=== PATIENT | male | born 1955 | race Caucasian/White ===

== ENCOUNTER 2022-03-13 22:14 | Emergency (ER) | payer BC ==
[2022-03-13] MEDS ORDERED: Ondansetron PF 4 MG/2 ML Vial ONE (23:35)
[2022-03-13 23:40] LABS: Hemoglobin 15.4 g/dL (14.0-18.0); Mean Corpuscular HGB CONC 36.3 g/dL (32.0-36.0); Mean Corpuscular Hemoglobin 33.2 pg (27.0-31.0); Mean Corpuscular Volume 91.4 fL (78.0-98.0); Mean Platelet Volume 7.6 fL (7.4-10.4); Platelet Count 98 thou/uL (130-400); RBC Distribution Width 12.1 % (11.5-14.5); Red Blood Cell (RBC) Count 4.65 mill/uL (4.70-6.10)
[2022-03-13 23:54] LABS: ALT (SGPT) 19 U/L (8-55); AST (SGOT) 24 U/L (5-34); Albumin 3.7 g/dL (3.4-4.8); Alkaline Phosphatase 65 U/L (40-110); Anion Gap 18 mmol/L (10-20); BUN (Urea Nitrogen) 21 mg/dL (8.4-25.7); Bilirubin, Total 0.7 mg/dL (0.2-1.2); Calc. Creatinine Clearance 0 mL/min (70-130); Calcium 9.2 mg/dL (7.8-10.44); Carbon Dioxide 14 mmol/L (23-31); Chloride 109 mmol/L (98-107); Globulin 3.3 g/dL (2.4-3.5); Glucose 166 mg/dL (80-115); Lipase 32 U/L (8-78); Sodium 138 mmol/L (136-145)
[2022-03-14 00:08] LABS: Potassium 2.9 mmol/L (3.5-5.1)
[2022-03-14 00:18] LABS: Band 18 % (5-11); Lymphocytes 16 % (21-51); MDiff Complete? YES; Monocytes 13 % (0-10); Neutrophil 53 % (42-75); Platelet Morphology Comment Appears Decreased; RBC Morphology Normal
[2022-03-14] MEDS ORDERED: Potassium Chloride 20 MEQ TAB ONE (00:26)
[2022-03-14] MEDS ORDERED: Potassium Chloride 20 MEQ/100 ML PREMIX BAG ONE (00:26)
== END 2022-03-14 01:58 | disposition home or self-care (01) ==
LOC: BURERS 22:14
DX: E86.0 Dehydration (principal); E87.6 Hypokalemia; R19.7 Diarrhea, unspecified; I49.8 Other specified cardiac arrhythmias; I10 Essential (primary) hypertension; F17.220 Nicotine dependence, chewing tobacco, uncomplicated
CPT/HCPCS: 80053; 83690; 85025; 93005; 96361; 96374; 96375; J2405; J3480

== ENCOUNTER 2023-08-03 16:40 | Emergency (ER) | payer BC | END 2023-08-03 18:08 | disposition home or self-care (01) | LOC: BURERS 16:40 | DX: M25.562 Pain in left knee (principal); I10 Essential (primary) hypertension; F17.220 Nicotine dependence, chewing tobacco, uncomplicated; Z79.899 Other long term (current) drug therapy ==